=== PATIENT | male | born 1985 ===

== ENCOUNTER 2018-05-13 08:35 | Emergency (ER) | payer OTHER ==
--- NOTE | 2018-05-13 09:06 | ED PDOC ---
Upper Extremity Pain/Injury Time Seen by Provider: 05/13/18 08:56 Chief Complaint (Provider): left middle finger injury History Per: Patient History/Exam Limitations: no limitations Onset/Duration Of Symptoms: Hrs (this morning) Current Symptoms Are (Timing): Still Present Additional Complaint(s): Yony Allan is a 33 year old male, with no significant past medical history, who presents to the emergency department for evaluation of a laceration avulsion to distal tip of left middle finger onset this morning while at work. He denies any fever, chills or other injuries. No further medical complaints. PMD: None provided. Past Medical History Reviewed: Historical Data, Nursing Documentation, Vital Signs - Medical History PMH: No Chronic Diseases - Surgical History Surgical History: No Surg Hx - Family History Family History: States: Unknown Family Hx - Allergies Allergies/Adverse Reactions: Allergies Allergy/AdvReac Type Severity Reaction Status Date / Time No Known Allergies Allergy Verified 05/13/18 09:11 Review of Systems ROS Statement: Except As Marked, All Systems Reviewed And Found Negative Constitutional: Negative for: Fever, Chills Musculoskeletal: Positive for: Hand Pain (left middle finger injury) Physical Exam - Reviewed Nursing Documentation Reviewed: Yes Vital Signs Reviewed: Yes - Physical Exam Appears: Positive for: No Acute Distress Head Exam: Positive for: ATRAUMATIC, NORMOCEPHALIC Skin: Positive for: Normal Color, Warm, Dry Eye Exam: Positive for: Normal appearance Neck: Positive for: Painless ROM Extremity: Positive for: Normal ROM (upper and lower extremities), Other (1cm avulsion to distal tip of left middle finger with partial removal of distal quarter of nail. No bone exposed ). Negative for: Deformity Neurologic/Psych: Positive for: Alert, Oriented. Negative for: Motor/Sensory Deficits Medical Decision Making Medical Decision Making: Time: 08:56 Initial PLAN: --Reevaluation ----- Scribe Attestation: Documented by Hari Raza, acting as a scribe for Yony Patel MD. Provider Scribe Attestation: All medical record entries made by the Scribe were at my direction and personally dictated by me. I have reviewed the chart and agree that the record accurately reflects my personal performance of the history, physical exam, medical decision making, and the department course for this patient. I have also personally directed, reviewed, and agree with the discharge instructions and disposition. Disposition - Clinical Impression Clinical Impression: Laceration - Patient ED Disposition Is Patient to be Admitted: No - Disposition [facility]errals: [facility] [[facility]] Disposition: Routine/Home Disposition Time: 09:30 Condition: FAIR Instructions: Wound Care
[2018-05-13 09:19] VITALS: BP 134/89; PULSE 85; RESP 17; TEMP 98.9; O2SAT 99; BMI 30.7
[2018-05-13] MEDS ORDERED: Absorbable Gelatin Sponge Size 12-7 ONE (09:19)
== END 2018-05-13 10:00 | disposition home or self-care (01) ==
LOC: H.ER 08:35
DX: S61.313A Laceration without foreign body of left middle finger with damage to nail, initial encounter (principal); W45.8XXA Other foreign body or object entering through skin, initial encounter; Y99.0 Civilian activity done for income or pay